=== PATIENT | female | born 1945 | race Caucasian/White ===

== ENCOUNTER → 2018-11-15 | Outpatient (CLI) | payer MEDICARE, OTHER ==
--- NOTE | 2018-11-15 10:53 | Diagnostic Imaging Report ---
PROCEDURE: US Non-ob pelvis comp/trans. TECHNIQUE: Multiple realtime grayscale images were obtained of the pelvis in various projections endovaginally. Transabdominal imaging was also performed. INDICATION: Vaginal bleeding. Uterus measures 6.1 x 4.9 x 4.1 cm. Endometrium is significantly thickened and heterogeneous in appearance measuring up to 3.7 cm. There is some vascularity to the endometrium. Right ovary measures 2.0 x 1.6 x 0.9 cm and the left ovary measures 2.0 x 1.6 x 1.0 cm. No adnexal mass or free fluid is seen. IMPRESSION: Markedly thickened and heterogeneous endometrium with some internal vascularity. Features are concerning for endometrial neoplasm. Dictated by: Dictated on workstation # [id number]
== END ==
LOC: RAD 09:30
PROVIDERS: ATTEND Nurse Practitioner Women's Health
DX: Z95.0 Presence of cardiac pacemaker (principal); R93.89 Abnormal findings on diagnostic imaging of other specified body structures
CPT/HCPCS: 76830; 76856

== ENCOUNTER 2018-12-04 05:37 | Outpatient (CLI) | payer MEDICARE, OTHER ==
[~2018-12-04] VITALS: Ht 170.2 cm; Wt 88.0 kg
[2018-12-04] MEDS ORDERED: TORS20TA3 PO (08:41)
[2018-12-04] MEDS ORDERED: AMLO5TAB9 PO (08:41)
[2018-12-04] MEDS ORDERED: POTA10TA36 PO (08:41)
[2018-12-04] MEDS ORDERED: BENA20TA7 PO (08:41)
[2018-12-04] MEDS ORDERED: ATOR80TA76 PO (08:41)
[2018-12-04] MEDS ORDERED: LEVO75TA6 PO (08:41)
== END 2018-12-04 10:41 | disposition home or self-care (01) ==
LOC: PREOP 05:37
PROVIDERS: ATTEND Obstetrics & Gynecology
DX: Z01.818 Encounter for other preprocedural examination (principal)

== ENCOUNTER 2018-12-10 07:55 | Day surgery (SDC) | payer MEDICARE, OTHER ==
[2018-12-10] VITALS (7 sets, daily range): BP systolic 120–154; BP diastolic 80–93
[~2018-12-10] VITALS: Ht 172.7 cm; Wt 88.1 kg
[~2018-12-10 07:55] MED LIST: AMLO5TAB9 PO; ATOR80TA76 PO; BENA20TA7 PO; LEVO75TA6 PO; POTA10TA36 PO; TORS20TA3 PO
[2018-12-10] MEDS ORDERED: LACTATED RINGERS 1,000 ML IV PRN (08:38)
[2018-12-10 08:46] LABS: BASOPHILS % (AUTO) 1 % (0-10); EOSINOPHILS # (AUTO) 0.1 10^3/uL (0.0-0.3); EOSINOPHILS % (AUTO) 1 % (0-10); HEMATOCRIT 41 % (35-52); HEMOGLOBIN 13.1 G/DL (11.5-16.0); LYMPHOCYTES # (AUTO) 1.2 X 10^3 (1.0-4.0); LYMPHOCYTES % (AUTO) 18 % (12-44); MEAN CORPUSCULAR HEMOGLOBIN 30 PG (25-34); MEAN CORPUSCULAR HGB CONC 32 G/DL (32-36); MEAN CORPUSCULAR VOLUME 93 FL (80-99); MEAN PLATELET VOLUME 9.1 FL (7.4-10.4); MONOCYTES # (AUTO) 0.7 X 10^3 (0.0-1.0); MONOCYTES % (AUTO) 10 % (0-12); NEUTROPHILS # (AUTO) 4.5 X 10^3 (1.8-7.8); NEUTROPHILS % (AUTO) 70 % (42-75); PLATELET COUNT 299 10^3/uL (130-400); RED CELL DISTRIBUTION WIDTH 14.1 % (10.0-14.5); WHITE BLOOD COUNT 6.5 10^3/uL (4.3-11.0)
[2018-12-10] MEDS ORDERED: D5 LR IV SOLUTION 1,000 ML IV SCH (09:34)
[2018-12-10] MEDS ORDERED: ONDANSETRON 4 MG/2 ML (SDV) Z0FRAN IVP PRN (09:45)
[2018-12-10] MEDS ORDERED: PROPOFOL INJECTION 50 ML IV ONE (10:36)
[2018-12-10] MEDS ORDERED: MIDAZOLAM 2 MG/2 ML (VERSED) VIAL ONE (10:36)
[2018-12-10] MEDS ORDERED: fentaNYL INJECTION 100 MCG/2 ML AMP ONE (10:37)
[2018-12-10] MEDS ORDERED: BUPIVACAINE 0.25% 30 ML (SENSORCAINE) VIAL ONE (10:41)
--- NOTE | 2018-12-10 10:53 | Progress Note-Pre Operative ---
Pre-Operative Progress Note H&P Reviewed The H&P was reviewed, patient examined and no changes noted. Date Seen by Provider: Dec 10, 2018 Time Seen by Provider: 10:55 Date H&P Reviewed: Dec 10, 2018 Time H&P Reviewed: 10:45 Pre-Operative Diagnosis: PMB WERNER BOJORQUEZ DO Dec 10, 2018 10:52
--- NOTE | 2018-12-10 15:37 | Anesthesia-General Post-Op ---
General Patient Condition Mental Status/LOC: Same as Preop Cardiovascular: Satisfactory Nausea/Vomiting: Absent Respiratory: Satisfactory Pain: Controlled Complications: Absent Post Op Complications Complications None Follow Up Care/Instructions Patient Instructions None needed. Anesthesia/Patient Condition Patient Condition Patient is doing well, no complaints, stable vital signs, no apparent adverse anesthesia problems. No complications reported per nursing. TA CELAYA CRNA Dec 10, 2018 15:37
--- NOTE | 2018-12-10 16:04 | OPERATIVE REPORT ---
DATE OF SERVICE: 12/10/2018 PREOPERATIVE DIAGNOSIS: A 73-year-old female with postmenopausal bleeding. POSTOPERATIVE DIAGNOSIS: A 73-year-old female with postmenopausal bleeding. PROCEDURE: D and C. SURGEON: Werner Bojorquez DO ANESTHESIA: MAC sedation. ESTIMATED BLOOD LOSS: Minimal. URINE OUTPUT: 250 mL clear drained at the end of the procedure. FLUIDS: 500 mL lactated Ringer's solution. FINDINGS: There is a small to moderate amount of endometrial curettings, age appropriate atrophic cervix, vagina and external female genitalia. SPECIMEN SENT: Endometrial curettings. INDICATIONS FOR PROCEDURE: This 73-year-old female is a patient of mine that I have been maintenancing every 6 to 8 weeks with pessary maintenance for cystocele. In the past months, she has had some postmenopausal bleeding. We removed the pessary, which did improve the bleeding; however, due to her postmenopausal status endometrial biopsy was attempted in the office was unsuccessful for collecting any tissue. Relevant pathologic analysis. I then discussed with the patient performing a D and C under anesthesia. Risks of procedure were discussed with the patient in detail including risk of bleeding, damage to surrounding structures including but not limited to bowel, bladder, ureter, kidneys, possible uterine perforation, postoperative complications and even . After everything was discussed with the patient in detail, consent was obtained in the preoperative area, the patient was taken to the operating room. OPERATIVE REPORT IN DETAIL: Once in the operating room, sedation was found to be adequate. She was placed in dorsal lithotomy position. A weighted speculum was placed into the patient's vagina. A right angle retractor was used to visualize the cervix, which was grasped at 12 o'clock position using long Allis clamp. A paracervical block was then performed at 3 and 9 o'clock positions using 0.25% Marcaine. Care was taken to aspirate before injecting. A total of 5 mL was injected at each injection site. I then gently sound the uterine cavity depth was found to be 8 cm and gently dilated the cervix using Hegar dilators to approximately 3 to 4 mm; however, due to an acute turn in her cervix I transitioned to a Edwin dilator, which allows me to dilate to approximately 8 mm, allowing me to take an endometrial sample using a small endometrial curette after which there was no active bleeding noted from any of my dissection planes. I removed all of the instruments from the patient's vagina. The patient tolerated the procedure well and sent to recovery area in stable condition. Lap and sponge counts were correct at the end of the procedure. Instrument counts correct as well. Job ID: [id number] DocumentID: [id number] Dictated Date: 12/10/2018 11:35:43 Industry Operations Investigator Date: 12/10/2018 16:03:30 Dictated By: WERNER BOJORQUEZ DO
== END 2018-12-10 12:42 | disposition home or self-care (01) ==
LOC: SDC 07:55
PROVIDERS: ATTEND Obstetrics & Gynecology
DX: N95.0 Postmenopausal bleeding (principal); R93.89 Abnormal findings on diagnostic imaging of other specified body structures; I10 Essential (primary) hypertension; E03.9 Hypothyroidism, unspecified; E78.5 Hyperlipidemia, unspecified; M19.90 Unspecified osteoarthritis, unspecified site; Z79.899 Other long term (current) drug therapy; Z82.49 Family history of ischemic heart disease and other diseases of the circulatory system; Z83.3 Family history of diabetes mellitus
CPT/HCPCS: 36415; 85025; 86850; 86900; 86901; 87081; 94664

== ENCOUNTER → 2018-12-26 | Outpatient (CLI) | payer MEDICARE, OTHER ==
[~2018-12-26] MED LIST changes: +BARIUM SUSPENSION 2.1% (VANILLA SILQ) 450 ML PO ONE; +CATHETER FLUSH 10 ML SYR IV PRN; +HOLD METFORMIN - RECEIVED CONTRAST 20 ML VIAL IV SCH; +IOHEXOL 350 MG/ML 100 ML (OMNIPAQUE 350) VIAL IV ONE; +NS 100 ML (IVPB) BAG IV ONE
--- NOTE | 2018-12-26 08:50 | Diagnostic Imaging Report ---
EXAMINATION: CT Chest, Abdomen and Pelvis with intravenous contrast. TECHNIQUE: Multiple contiguous axial images were obtained through the chest, abdomen and pelvis after the uneventful administration of intravenous contrast. All CT scans use one or more of the following dose optimizing techniques: automated exposure control, MA and/or KvP adjustment based on a patient size and exam type, or iterative reconstruction. INDICATION: Endometrial cancer. No comparison available. FINDINGS: The lungs are clear without edema or pneumonia. No pleural effusion or pneumothorax. No suspicious nodules. Heart size is normal. No pericardial effusion. Aorta is normal in caliber. There is no axillary, supraclavicular or mediastinal lymphadenopathy. There are moderate to severe coronary artery calcifications. The liver is normal without focal lesion. No biliary ductal dilation. Gallbladder is normal. Pancreas, spleen and adrenal glands are normal. The kidneys are normal. No hydronephrosis. Urinary bladder is normal. There is masslike thickening of the endometrium in keeping with diagnosis of endometrial cancer. There is a small fat-containing umbilical hernia. There are no dilated loops of large or small bowel. No obstruction or inflammation. The appendix is normal. No free fluid or air. No abdominal or pelvic lymphadenopathy. Aorta is normal in caliber without aneurysm. There are no suspicious osseus lesions. IMPRESSION: 1. Masslike thickening of the endometrium in keeping with the diagnosis of endometrial cancer. 2. No evidence for metastatic disease in the chest, abdomen and pelvis. Dictated by: Dictated on workstation # [id number]
== END ==
LOC: RAD 07:39
PROVIDERS: ATTEND Obstetrics & Gynecology
DX: C54.1 Malignant neoplasm of endometrium (principal)
CPT/HCPCS: 71260; 74177

== ENCOUNTER → 2019-01-07 | Outpatient (CLI) | payer MEDICARE, OTHER ==
[~2019-01-07] MED LIST changes: -BARIUM SUSPENSION 2.1% (VANILLA SILQ) 450 ML PO ONE; -CATHETER FLUSH 10 ML SYR IV PRN; -HOLD METFORMIN - RECEIVED CONTRAST 20 ML VIAL IV SCH; -IOHEXOL 350 MG/ML 100 ML (OMNIPAQUE 350) VIAL IV ONE; -NS 100 ML (IVPB) BAG IV ONE
[2019-01-07 11:30] LABS: BILIRUBIN,URINE NEGATIVE (NEGATIVE); CLARITY,URINE CLEAR; COLOR,URINE YELLOW; GLUCOSE, URINE (UA) NEGATIVE (NEGATIVE); KETONES,URINE NEGATIVE (NEGATIVE); LEUKOCYTE ESTERASE ,URINE NEGATIVE (NEGATIVE); NITRITE,URINE NEGATIVE (NEGATIVE); PH,URINE 7 (5-9); PROTEIN,URINE NEGATIVE (NEGATIVE); UROBILINOGEN,URINE NORMAL (NORMAL)
[2019-01-07 11:47] LABS: BASOPHILS % (AUTO) 1 % (0-10); EOSINOPHILS % (AUTO) 0 % (0-10); HEMATOCRIT 38 % (35-52); HEMOGLOBIN 12.3 G/DL (11.5-16.0); LYMPHOCYTES # (AUTO) 0.9 X 10^3 (1.0-4.0); LYMPHOCYTES % (AUTO) 12 % (12-44); MEAN CORPUSCULAR HEMOGLOBIN 30 PG (25-34); MEAN CORPUSCULAR HGB CONC 33 G/DL (32-36); MEAN CORPUSCULAR VOLUME 91 FL (80-99); MONOCYTES # (AUTO) 0.9 X 10^3 (0.0-1.0); MONOCYTES % (AUTO) 11 % (0-12); NEUTROPHILS # (AUTO) 5.9 X 10^3 (1.8-7.8); NEUTROPHILS % (AUTO) 77 % (42-75); PLATELET COUNT 371 10^3/uL (130-400); RED CELL DISTRIBUTION WIDTH 13.8 % (10.0-14.5); WHITE BLOOD COUNT 7.7 10^3/uL (4.3-11.0)
[2019-01-07 11:55] LABS: BACTERIA,URINE NEGATIVE /HPF
[2019-01-07 12:11] LABS: ALANINE AMINOTRANSFERASE 23 U/L (0-55); ALKALINE PHOSPHATASE 78 U/L (40-136); BILIRUBIN,TOTAL 0.5 MG/DL (0.1-1.0); BUN/CREATININE RATIO 15; CALCIUM 9.8 MG/DL (8.5-10.1); CARBON DIOXIDE 24 MMOL/L (21-32); CHLORIDE 103 MMOL/L (98-107); CREATININE SERUM 0.87 MG/DL (0.60-1.30); GFR ESTIMATED > 60; GLUCOSE 124 MG/DL (70-105); POTASSIUM 4.2 MMOL/L (3.6-5.0); SODIUM 138 MMOL/L (135-145); TOTAL PROTEIN 7.4 GM/DL (6.4-8.2)
== END ==
LOC: LAB 10:45
PROVIDERS: ATTEND Obstetrics & Gynecology
DX: Z01.812 Encounter for preprocedural laboratory examination (principal)
CPT/HCPCS: 36415; 80053; 81000; 85025

== ENCOUNTER 2019-02-25 08:45 | Outpatient (CLI) | payer MEDICARE, OTHER ==
[~2019-02-25] VITALS: Ht 167 cm; Wt 82.9 kg
[2019-02-25 08:58] VITALS: BP 177/102
== END 2019-02-25 09:20 ==
LOC: PREOP 08:45
PROVIDERS: ATTEND Surgery
DX: Z01.818 Encounter for other preprocedural examination (principal); Z11.2 Encounter for screening for other bacterial diseases
CPT/HCPCS: 87081

== ENCOUNTER 2019-02-27 08:27 | Day surgery (SDC) | payer MEDICARE, OTHER ==
[2019-02-27] VITALS (7 sets, daily range): BP systolic 135–184; BP diastolic 70–94
[~2019-02-27] VITALS: Ht 167 cm; Wt 82.9 kg
[2019-02-27] MEDS ORDERED: LACTATED RINGERS 1,000 ML IV PRN (08:31)
[2019-02-27] MEDS ORDERED: CLINDAMYCIN 600 MG/50 ML IVPB 50 ML IV ONE (08:45)
--- NOTE | 2019-02-27 10:03 | Progress Note-Pre Operative ---
Pre-Operative Progress Note H&P Reviewed The H&P was reviewed, patient examined and no changes noted. Time Seen by Provider: 09:59 Date H&P Reviewed: Feb 27, 2019 Time H&P Reviewed: 10:01 Pre-Operative Diagnosis: Venous Insufficiency SHANTELLE ALVARADO DO Feb 27, 2019 10:03 POS
[2019-02-27] MEDS ORDERED: BUP/EPI 0.5% 1:200,000 (MARCAINE) 10ML VIAL IJ ONE ×2 (10:39→11:40)
[2019-02-27] MEDS ORDERED: 0.9% SODIUM CHLORIDE PF INJ 20 ML VIAL ONE (10:40)
[2019-02-27] MEDS ORDERED: HEParin (CENTRAL IV FLUSH) 500 UNIT/5 ML SYR ONE (10:40)
[2019-02-27] MEDS ORDERED: PROPOFOL INJECTION 50 ML IV ONE (10:51)
[2019-02-27] MEDS ORDERED: KETAMINE/NaCl 50 MG/5 ML SYRINGE (ED ONLY) ONE (11:25)
[2019-02-27] MEDS ORDERED: MIDAZOLAM 2 MG/2 ML (VERSED) VIAL ONE (11:26)
[2019-02-27] MEDS ORDERED: morphine INJ 10 MG/ML 1ML (SYR OR VIAL) IVP ONE (12:30)
[2019-02-27] MEDS ORDERED: ONDANSETRON 4 MG/2 ML (SDV) Z0FRAN IVP PRN (12:30)
--- NOTE | 2019-02-27 13:30 | Diagnostic Imaging Report ---
INDICATION: Undergoing port placement. TECHNIQUE: Single intraprocedural images right upper chest. FINDINGS/ IMPRESSION: The hospital radiology department provided fluoroscopic imaging for the clinical service in support of an interventional procedure. A radiologist was not involved in the procedure. Please reference the operating provider's procedure note. Fluoroscopy Time: 7.8 seconds. Limited single view projection of the right upper chest demonstrates a right sided Tnnzfr-s-Lqwz catheter to be present. There is noted fairly significant curvature of the proximal aspect of the catheter which has nearly 180-degree course. Tip is not well-defined on this study. If further assessment is desired, post procedure chest radiograph would be recommended. Dictated by: Dictated on workstation # [id number]
--- NOTE | 2019-02-27 14:03 | NUR ---
PHONED TELEPHONE AND RECEIVED TELEPHONE CONSENT TO PUT DISCHARGE IN FOR PATIENT CONTINUE HOME MEDICATIONS AND F/U IN 10 DAYS.
--- NOTE | 2019-02-27 14:59 | Progress Note-Post Operative ---
Post-Operative Progess Note Surgeon (s)/Aquaculture Farm Manager (s) Surgeon SHANTELLE ALVARADO DO Aquaculture Farm Manager: JUICE Mederos Pre-Operative Diagnosis Venous Insufficiency Post-Operative Diagnosis same Procedure & Operative Findings Date of Procedure 02/27/19 Procedure Performed/Findings Osvaldo-cath insertion Anesthesia Type IV sedation by OIL AND GAS EXPLORATION TECHNICIAN Estimated Blood Loss Estimated blood loss (mL): scant Specimens/Packing Specimens Removed none SHANTELLE ALVARADO DO Feb 27, 2019 14:58 POS
--- NOTE | 2019-02-27 15:00 | Discharge Inst-Surgical ---
Discharge Inst-Surgical Depart Medication/Instructions New, Converted or Re-Newed RX: Other (no rx needed, take home meds) Patient Instructions Follow up Appt: Make appointment for 1 week. [phone] Instructions: May shower in 24 hours, no tub bath or soaking. Use incentive spirometer at home as directed. No Smoking Skin/Wound Care: May remove bandages in am. You need to leave the Dermabond on incision it will fall off on it's own. Symptoms to Report: Appetite Changes, Extremity Discoloration, Numbness/Tingling, Swelling Increased, Bleeding Excessive, Eyesight Changes, Pain Increased, Urine Color Change, Constipation(Persistent), Fever over 101 degree F, Pain/Pressure in chest, Urinating Difficulty, Cough Up/Vomit Blood, Heart Beat Irreg/Pounding, Pain/Pressure in jaw, Cramps in feet or legs, Lightheadedness, Pain/Pressure in shoulder, Diarrhea(Persistent), Memory Changes Suddenly, Questions/Concerns, Weight gain consecutive days, Dizziness/Fainting, Nausea/Vomiting, Shortness of Breath, Weight gain over 2 pounds If questions or concerns contact your physician Or seek help at emergency department. Activity Activity as Tolerated: Yes Driving Instructions: No Driving/Refer to Dr. Parker Discharge Diet: No Restrictions Diet After 24 Hours: Clear Liquid if Nauseous If Any Problems/Questions/Issu: Contact Your Physician, Go to Emergency Room Skin/Wound Care Infection Signs and Symptoms: Increased Redness, Foul Odor of Wound, Increased Drainage, Skin Itchy or Has a Rash, Increased Swelling, Temperature Above 101 F Bathing Instructions: Shower Stitches/Wilfredo/Dermabond Dis: SHANTELLE Sharif DO Feb 27, 2019 14:59 POS
--- NOTE | 2019-02-27 15:09 | Anesthesia-General Post-Op ---
MAC Patient Condition Mental Status/LOC: Same as Preop Cardiovascular: Satisfactory Nausea/Vomiting: Absent Respiratory: Satisfactory Pain: Controlled Complications: Absent Post Op Complications Complications None Follow Up Care/Instructions Patient Instructions None needed. Anesthesiology Discharge Order Discharge Order Patient is doing well, no complaints, stable vital signs, no apparent adverse anesthesia problems. EDSON CHIN DO Feb 27, 2019 15:09 POS
--- NOTE | 2019-02-28 13:50 | OPERATIVE REPORT ---
DATE OF SERVICE: 02/27/2019 PREOPERATIVE DIAGNOSIS: Venous insufficiency. POSTOPERATIVE DIAGNOSIS: Venous insufficiency. PROCEDURE: Insertion of Port-A-Cath, right anterior chest wall, right subclavian vein with fluoroscopy guidance. SURGEON: Bhupendra Guthrie DO DIRECTOR DAY CARE CENTER: Gregory Saxena MS3 SPECIMENS: None. BLOOD LOSS: Scant. FLUIDS: Per anesthesia. POSTOPERATIVE CONDITION: Stable. INDICATION FOR PROCEDURE: The patient is a 74-year-old female who has venous insufficiency and has cancer with need for Port-A-Cath for chemotherapy. FINDINGS: The patient had a Port-A-Cath placed in right anterior chest wall, right subclavian vein. PROCEDURE NOTE: After informed consent was obtained, the patient was brought to the operating room, placed on the operating table in supine position. She was sterilely prepped and draped in normal fashion, placed slightly Trendelenburg. First infiltrated the right anterior chest wall as well as towards the clavicle with local lidocaine, then I advanced an 18-gauge fine needle with negative inspiration under the clavicle, got a good flash of blood on the first attempt removed the syringe then placed a guidewire using Seldinger technique. It went in easily checked with fluoroscopy, it was in good position, then made a stab incision along the guidewire with a #11 blade and then made an incision in the right anterior chest wall with #11 blade, carried down through the skin into subcutaneous tissue, deepened down through subcutaneous tissue with Bovie electrocautery down to the fascia of the pectoralis muscle and then created a pocket bluntly, tunneled the catheter from the stab incision into this pocket and then over the guidewire placed a dilator using the Seldinger technique, it went in easily checked with fluoroscopy, it was in good position. I removed the inner portion of the dilator and the guidewire and then placed the catheter down the dilator sheath using Seldinger technique, it went in easily checked position with fluoroscopy, it was in good position. I removed the outer portion of the dilator and then attached the catheter to the port placed a locking mechanism accessed the port with a Meyers needle, aspirated, got a good flash of blood then easily flushed with saline and then aspirated and then flushed with 2 mL of heparin flush. Sutured this in place suturing the 3-0 Prolene to the port and suturing this down medially to the pectoralis fascia. Placed the port in the pocket previously created. It laid in nicely. At this point, then closed the subcutaneous tissue with 3-0 Vicryl 2 interrupted sutures and closed the skin with 4 undyed Monocryl, 3 interrupted subcuticular stitches and closed the stab incision with a 4-0 undyed Monocryl subcuticular stitch. Area was cleaned and dried. Dermabond placed as well as dressing. The patient tolerated the procedure. Sponge, instrument and needle count correct at the end of the case and transferred to recovery room in stable condition. Job ID: [id number] DocumentID: [id number] Dictated Date: 02/28/2019 09:26:02 Structures Technician Date: 02/28/2019 13:48:52 Dictated By: DO FLORIN BERMUDEZ
--- OUTSIDE RECORDS SUMMARY | 2019-03-24 21:07 | XMS REPORT | Continuity of Care Document ---
Author Organization Unknown Address Unknown Phone Unavailable Allergies Active Description Code Type Severity Reaction Onset Reported/Identified Relationship to Patient Clinical Status Yes NO KNOWN DRUG ALLERGIES UNKNOWN NO KNOWN DRUG ALLERG Yes NO KNOWN DRUG ALLERGIES UNKNOWN UNKNOWN Yes No Known Drug Allergies [id number] Drug Allergy Unknown N/A 12/04/2018 Yes Penicillins [id number] Drug Aller gy Mild RASH 02/25/2019 Medications There is no data. 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 04/24/2017 W 401.9 UNSP ECIFIED ESSENTIAL HYPERTENSION 04/24/2017 W 460 ACUTE NASOPHARYNGITIS [COMMON COLD] 04/24/2017 W 625.5 PELV IC CONGESTION SYNDROME 04/24/2017 W E03.9 HYPO THYROIDISM, UNSPECIFIED 04/24/2017 W E78.5 HYPE RLIPIDEMIA, UNSPECIFIED 04/24/2017 W I10 ESSENT IAL (PRIMARY) HYPERTENSION 04/24/2017 W J00 ACUTE NASOPHARYNGITIS [COMMON COLD] 04/24/2017 W N94.89 OTH ER SPECIFIED CONDITIONS ASSOCIATED WITH FEMALE GENITAL ORGANS AND MENSTRUAL CYCLE 10/10/2017 Ariadna Pickard W 244.9 UNSPECIFIED HYPOTHYROIDISM 10/10/2017 Melly, Ariadna W 272.8 OTHER DISORDERS OF LIPOID METABOLISM 10/10/2017 Melly, Ariadna W 401.9 UNSPECIFIED ESSENTIAL HYPERTENSION 10/10/2017 Melly, Ariadna W E03.9 HYPOTHYROIDISM, UNSPECIFIED 10/10/2017 Melly, Ariadna W E78.5 HYPERLIPIDEMIA, UNSPECIFIED 10/10/2017 Melly, Ariadna W I10 ESSENTIAL (PRIMARY) HYPERTENSION 10/16/2017 W 244.9 UNSP ECIFIED HYPOTHYROIDISM 10/16/2017 W 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 10/16/2017 W 278.00 OBE SITY, UNSPECIFIED 10/16/2017 W 401.9 UNSP ECIFIED ESSENTIAL HYPERTENSION 10/16/2017 W 715.16 OST EOARTHROSIS, LOCALIZED, PRIMARY, INVOLVING LOWER LEG 10/16/2017 W 719.46 MATTHIAS N IN JOINT INVOLVING LOWER LEG 10/16/2017 W E03.9 HYPO THYROIDISM, UNSPECIFIED 10/16/2017 W E66.9 OBES ITY, UNSPECIFIED 10/16/2017 W E78.5 HYPE RLIPIDEMIA, UNSPECIFIED 10/16/2017 W I10 ESSENT IAL (PRIMARY) HYPERTENSION 10/16/2017 W M17.0 BILA TERAL PRIMARY OSTEOARTHRITIS OF KNEE 10/16/2017 W M25.561 PA IN IN RIGHT KNEE 10/30/2017 W 715.16 OST EOARTHROSIS, LOCALIZED, PRIMARY, INVOLVING LOWER LEG 10/30/2017 W 719.46 MATTHIAS N IN JOINT INVOLVING LOWER LEG 10/30/2017 W M17.12 UNI LATERAL PRIMARY OSTEOARTHRITIS, LEFT KNEE 10/30/2017 W M25.562 PA IN IN LEFT KNEE 01/15/2018 W 715.16 OST EOARTHROSIS, LOCALIZED, PRIMARY, INVOLVING LOWER LEG 01/15/2018 W 719.46 MATTHIAS N IN JOINT INVOLVING LOWER LEG 01/15/2018 W M17.11 UNI LATERAL PRIMARY OSTEOARTHRITIS, RIGHT KNEE 01/15/2018 W M25.561 PA IN IN RIGHT KNEE 02/05/2018 W 244.9 UNSP ECIFIED HYPOTHYROIDISM 02/05/2018 W 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 02/05/2018 W 278.00 OBE SITY, UNSPECIFIED 02/05/2018 W 401.9 UNSP ECIFIED ESSENTIAL HYPERTENSION 02/05/2018 W 715.16 OST EOARTHROSIS, LOCALIZED, PRIMARY, INVOLVING LOWER LEG 02/05/2018 W 719.46 MATTHIAS N IN JOINT INVOLVING LOWER LEG 02/05/2018 W 782.3 EDEMA 02/05/2018 W E03.9 HYPO THYROIDISM, UNSPECIFIED 02/05/2018 W E66.9 OBES ITY, UNSPECIFIED 02/05/2018 W E78.5 HYPE RLIPIDEMIA, UNSPECIFIED 02/05/2018 W I10 ESSENT IAL (PRIMARY) HYPERTENSION 02/05/2018 W M17.12 UNI LATERAL PRIMARY OSTEOARTHRITIS, LEFT KNEE 02/05/2018 W M25.562 PA IN IN LEFT KNEE 02/05/2018 W R60.9 ANJANA A, UNSPECIFIED 02/27/2018 Melly, Ariadna W 244.9 UNSPECIFIED HYPOTHYROIDISM 02/27/2018 Melly, Ariadna W 272.8 OTHER DISORDERS OF LIPOID METABOLISM 02/27/2018 Melly, Ariadna W 278.00 OBESITY, UNSPECIFIED 02/27/2018 Melly, Ariadna W 401.9 UNSPECIFIED ESSENTIAL HYPERTENSION 02/27/2018 Melly, Ariadna W 782.3 EDEMA 02/27/2018 Melly, Ariadna W E03.9 HYPOTHYROIDISM, UNSPECIFIED 02/27/2018 Melly, Ariadna W E66.9 OBESITY, UNSPECIFIED 02/27/2018 Melly, Ariadna W E78.5 HYPERLIPIDEMIA, UNSPECIFIED 02/27/2018 Melly, Ariadna W I10 ESSENTIAL (PRIMARY) HYPERTENSION 02/27/2018 Melly, Ariadna W R60.9 EDEMA, UNSPECIFIED 03/05/2018 W 244.9 UNSP ECIFIED HYPOTHYROIDISM 03/05/2018 W 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 03/05/2018 W 401.9 UNSP ECIFIED ESSENTIAL HYPERTENSION 03/05/2018 W 715.30 OST EOARTHROSIS, LOCALIZED, NOT SPECIFIED WHETHER PRIMARY OR SECONDARY, INVOLVING UNSPECIFIED SITE 03/05/2018 W 782.3 EDEMA 03/05/2018 W E03.9 HYPO THYROIDISM, UNSPECIFIED 03/05/2018 W E78.5 HYPE RLIPIDEMIA, UNSPECIFIED 03/05/2018 W I10 ESSENT IAL (PRIMARY) HYPERTENSION 03/05/2018 W M19.90 UNS PECIFIED OSTEOARTHRITIS, UNSPECIFIED SITE 03/05/2018 W R60.9 ANJANA A, UNSPECIFIED 03/05/2018 W V76.19 OTH ER SCREENING BREAST EXAMINATION 03/05/2018 W Z12.39 ENC OUNTER FOR OTHER SCREENING FOR MALIGNANT NEOPLASM OF BREAST 03/08/2018 Ariadna Pickard W V76.19 OTHER SCREENING BREAST EXAMINATION 03/08/2018 Ariadna Pickard W Z12.39 ENCOUNTER FOR OTHER SCREENING FOR MALIGNANT NEOPLASM OF BREAST 06/04/2018 W 715.16 OST EOARTHROSIS, LOCALIZED, PRIMARY, INVOLVING LOWER LEG 06/04/2018 W 719.46 MATTHIAS N IN JOINT INVOLVING LOWER LEG 06/04/2018 W M17.11 UNI LATERAL PRIMARY OSTEOARTHRITIS, RIGHT KNEE 06/04/2018 W M25.561 PA IN IN RIGHT KNEE 06/18/2018 W 715.16 OST EOARTHROSIS, LOCALIZED, PRIMARY, INVOLVING LOWER LEG 06/18/2018 W 719.46 MATTHIAS N IN JOINT INVOLVING LOWER LEG 06/18/2018 W M17.12 UNI LATERAL PRIMARY OSTEOARTHRITIS, LEFT KNEE 06/18/2018 W M25.562 PA IN IN LEFT KNEE 09/03/2018 W 244.9 UNSP ECIFIED HYPOTHYROIDISM 09/03/2018 W 272.4 OTHE R AND UNSPECIFIED HYPERLIPIDEMIA 09/03/2018 W 278.00 OBE SITY, UNSPECIFIED 09/03/2018 W 401.0 HANG GNANT ESSENTIAL HYPERTENSION 09/03/2018 W 715.16 OST EOARTHROSIS, LOCALIZED, PRIMARY, INVOLVING LOWER LEG 09/03/2018 W 719.46 MATTHIAS N IN JOINT INVOLVING LOWER LEG 09/03/2018 W E03.9 HYPO THYROIDISM, UNSPECIFIED 09/03/2018 W E66.9 OBES ITY, UNSPECIFIED 09/03/2018 W E78.5 HYPE RLIPIDEMIA, UNSPECIFIED 09/03/2018 W I10 ESSENT IAL (PRIMARY) HYPERTENSION 09/03/2018 W M17.11 UNI LATERAL PRIMARY OSTEOARTHRITIS, RIGHT KNEE 09/03/2018 W M25.561 PA IN IN RIGHT KNEE 09/17/2018 W 715.16 OST EOARTHROSIS, LOCALIZED, PRIMARY, INVOLVING LOWER LEG 09/17/2018 W 719.46 MATTHIAS N IN JOINT INVOLVING LOWER LEG 09/17/2018 W M17.12 UNI LATERAL PRIMARY OSTEOARTHRITIS, LEFT KNEE 09/17/2018 W M25.562 PA IN IN LEFT KNEE 11/19/2018 BANDAR FIGUEROA NUCLEAR INSTRUCTOR Ot R93.89 ABNORMAL FINDINGS ON DX IMAGING OF [facility] 11/19/2018 BANDAR FIGUEROA NUCLEAR INSTRUCTOR Ot Z95.0 PRESENCE OF CARDIAC PACEMAKER 11/28/2018 Melly, Ariadna W 244.9 UNSPECIFIED HYPOTHYROIDISM 11/28/2018 Melly, Ariadna W 272.4 OTHER AND UNSPECIFIED HYPERLIPIDEMIA 11/28/2018 Melly, Ariadna W 278.00 OBESITY, UNSPECIFIED 11/28/2018 Melly, Ariadna W 401.0 MALIGNANT ESSENTIAL HYPERTENSION 11/28/2018 Melly, Ariadna W 715.16 OSTEOARTHROSIS, LOCALIZED, PRIMARY, INVOLVING LOWER LEG 11/28/2018 Melly, Ariadna W 782.3 EDEMA 11/28/2018 Melly, Ariadna W E03.9 HYPOTHYROIDISM, UNSPECIFIED 11/28/2018 Melly, Ariadna W E66.9 OBESITY, UNSPECIFIED 11/28/2018 Melly, Ariadna W E78.5 HYPERLIPIDEMIA, UNSPECIFIED 11/28/2018 Melly, Ariadna W I10 ESSENTIAL (PRIMARY) HYPERTENSION 11/28/2018 Melly, Ariadna W M17.0 BILATERAL PRIMARY OSTEOARTHRITIS OF KNEE 11/28/2018 Melly, Ariadna W R60.9 EDEMA, UNSPECIFIED 11/28/2018 Melly, Ariadna W V68.09 OTHER ISSUE OF MEDICAL CERTIFICATES 11/28/2018 Melly, Ariadna W V72.84 PREOPERATIVE EXAMINATION, UNSPECIFIED 11/28/2018 Melly, Ariadna W Z01.812 ENCOUNTER FOR PREPROCEDURAL LABORATORY EXAMINATION 11/28/2018 Melly, Ariadna W Z02.79 ENCOUNTER FOR ISSUE OF OTHER MEDICAL CERTIFICATE 11/29/2018 BANDAR FIGUEROA NUCLEAR INSTRUCTOR Ot R93.89 ABNORMAL FINDINGS ON DX IMAGING OF OT B 11/29/2018 BANDAR FIGUEROA NUCLEAR INSTRUCTOR Ot Z95.0 PRESENCE OF CARDIAC PACEMAKER 11/29/2018 BANDAR FIGUEROA NUCLEAR INSTRUCTOR Ot R93.89 ABNORMAL FINDINGS ON DX IMAGING OF OT B 11/29/2018 BANDAR FIGUEROA NUCLEAR INSTRUCTOR Ot Z95.0 PRESENCE OF CARDIAC PACEMAKER 11/29/2018 BANDAR FIGUEROA NUCLEAR INSTRUCTOR Ot R93.89 ABNORMAL FINDINGS ON DX IMAGING OF OTH B 11/29/2018 BANDAR FIGUEROA NUCLEAR INSTRUCTOR Ot Z95.0 PRESENCE OF CARDIAC PACEMAKER 11/30/2018 BANDAR FIGUEROA NUCLEAR INSTRUCTOR Ot R93.89 ABNORMAL FINDINGS ON DX IMAGING OF OT B 11/30/2018 BANDAR FIGUEROA NUCLEAR INSTRUCTOR Ot Z95.0 PRESENCE OF CARDIAC PACEMAKER 11/30/2018 Ariadna Pickard V68.09 OTHER ISSUE OF MEDICAL CERTIFICATES 11/30/2018 Ariadna Pickard V72.84 PREOPERATIVE EXAMINATION, UNSPECIFIED 11/30/2018 Ariadna Pickard Z01.812 ENCOUNTER FOR PREPROCEDURAL LABORATORY EXAMINATION 11/30/2018 Ariadna Pickard Z02.79 ENCOUNTER FOR ISSUE OF OTHER MEDICAL CERTIFICATE 11/30/2018 Ariadna Pickard V68.09 OTHER ISSUE OF MEDICAL CERTIFICATES 11/30/2018 Ariadna Pickard V72.84 PREOPERATIVE EXAMINATION, UNSPECIFIED 11/30/2018 Ariadna Pickard Z01.812 ENCOUNTER FOR PREPROCEDURAL LABORATORY EXAMINATION 11/30/2018 Ariadna Pickard Z02.79 ENCOUNTER FOR ISSUE OF OTHER MEDICAL CERTIFICATE 12/04/2018 WERNER BOJORQUEZ DO S Ot Z01.818 ENCOUNTER FOR OTHER PREPROCEDURAL EXAMIN 12/10/2018 BANDAR FIGUEROA APRN Ot R93.89 ABNORMAL FINDINGS ON DX IMAGING OF OT B 12/10/2018 BANDAR FIGUEROA NUCLEAR INSTRUCTOR Ot Z95.0 PRESENCE OF CARDIAC PACEMAKER 12/10/2018 TIMIECH DO WERNER S Ot E03.9 HYPOTHYROIDISM, UNSPECIFIED 12/10/2018 FENECH DOWERNER S Ot E78.5 HYPERLIPIDEMIA, UNSPECIFIED 12/10/2018 FENECH DOWERNER S Ot I1 0 ESSENTIAL (PRIMARY) HYPERTENSION 12/10/2018 TIMIECH WERNER HERNANDEZ S Ot M19.90 UNSPECIFIED OSTEOARTHRITIS, UNSPECIFIED 12/10/2018 TIMIECH WERNER HERNANDEZ S Ot N95.0 POSTMENOPAUSAL BLEEDING 12/10/2018 WERNER BOJORQUEZ DO S Ot R93.89 ABNORMAL FINDINGS ON DX IMAGING OF OT B 12/10/2018 FENECH DO WERNER S Ot Z79.899 OTHER SCREENER AND BLENDER OPERATOR (CURRENT) DRUG THERAPY 12/10/2018 TIMIECH WERNER HERNANDEZ S Ot Z82.49 FAMILY HX OF ISCHEM HEART DIS AND OTH DI 12/10/2018 TIMIECH WERNER HERNANDEZ S Ot Z83.3 FAMILY HISTORY OF DIABETES MELLITUS 12/13/2018 TIMIECH DO WERNER S Ot E03.9 HYPOTHYROIDISM, UNSPECIFIED 12/13/2018 FENECH DOWERNER S Ot E78.5 HYPERLIPIDEMIA, UNSPECIFIED 12/13/2018 WERNER BOJORQUEZ DO S Ot I1 0 ESSENTIAL (PRIMARY) HYPERTENSION 12/13/2018 WERNER BOJORQUEZ DO Ot M19.90 UNSPECIFIED OSTEOARTHRITIS, UNSPECIFIED 12/13/2018 WERNER BOJORQUEZ DO Ot N95.0 POSTMENOPAUSAL BLEEDING 12/13/2018 WERNER BOJORQUEZ DO Ot R93.89 ABNORMAL FINDINGS ON DX IMAGING OF OT B 12/13/2018 WERNER BOJORQUEZ DO Ot Z79.899 OTHER RESIDENTIAL (CURRENT) DRUG THERAPY 12/13/2018 WERNER BOJORQUEZ DO Ot Z82.49 FAMILY HX OF ISCHEM HEART DIS AND OTH DI 12/13/2018 WERNER BOJORQUEZ DO Ot Z83.3 FAMILY HISTORY OF DIABETES MELLITUS 12/24/2018 BANDAR FIGUEROA APRN Ot R93.89 ABNORMAL FINDINGS ON DX IMAGING OF [facility] 12/24/2018 BANDAR FIGUEROA NUCLEAR INSTRUCTOR Ot Z95.0 PRESENCE OF CARDIAC PACEMAKER 12/28/2018 BRANDON MAYNARD DO Ot C54.1 MALIGNANT NEOPLASM OF ENDOMETRIUM 01/07/2019 BANDAR FIGUEROA APRN Ot R93.89 ABNORMAL FINDINGS ON DX IMAGING OF [facility] 01/07/2019 BANDAR FIGUEROA NUCLEAR INSTRUCTOR Ot Z95.0 PRESENCE OF CARDIAC PACEMAKER 01/07/2019 BRANODN MAYNARD DO S Ot C54.1 MALIGNANT NEOPLASM OF ENDOMETRIUM 01/17/2019 BRANDON MAYNARD DO S Ot C54.1 MALIGNANT NEOPLASM OF ENDOMETRIUM 01/21/2019 BRANDON MAYNARD DO S Ot C54.1 MALIGNANT NEOPLASM OF ENDOMETRIUM 01/29/2019 BRANDON MAYNARD DO S Ot Z01.812 ENCOUNTER FOR PREPROCEDURAL LABORATORY E 02/08/2019 BRANDON MAYNARD DO S Ot Z01.812 ENCOUNTER FOR PREPROCEDURAL LABORATORY E 02/26/2019 SHANTELLE ALVARADO DO Ot Z01.8 18 ENCOUNTER FOR OTHER PREPROCEDURAL EXAMIN 02/26/2019 SHANTELLE ALVARADO DO Ot Z11.2 ENCOUNTER FOR SCREENING FOR OTHER BACTER 03/01/2019 SHANTELLE ALVARADO DO Ot 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 03/01/2019 SHANTELLE ALVARADO DO Ot C80.1 MALIGNANT (PRIMARY) NEOPLASM, UNSPECIFIE 03/01/2019 SHANTELLE ALVARADO DO Ot E03.9 HYPOTHYROIDISM, UNSPECIFIED 03/01/2019 SHANTELLE ALVARADO DO Ot E78.5 HYPERLIPIDEMIA, UNSPECIFIED 03/01/2019 QUANG ALVARADO DOROHITH Toribio Ot I10 ESSENTIAL (PRIMARY) HYPERTENSION 03/01/2019 QUANG ALVARADO DOROHITH Toribio Ot I87.2 VENOUS INSUFFICIENCY (CHRONIC) (PERIPHER 03/01/2019 QUANG ALVARADO DOROHITH Toribio Ot Z79.8 99 OTHER SCREENER AND BLENDER OPERATOR (CURRENT) DRUG THERAPY 03/01/2019 QUANG ALVARADO DOROHITH Toribio Ot Z80.9 FAMILY HISTORY OF MALIGNANT NEOPLASM, UN 03/01/2019 CHRISTIANO HERNANDEZ SHANTELLE B Ot Z82.4 9 FAMILY HX OF ISCHEM HEART DIS AND OTH DI 03/01/2019 CHRISTIANO HERNANDEZ SHANTELLE B Ot Z83.3 FAMILY HISTORY OF DIABETES MELLITUS 03/01/2019 CHRISTIANO HERNANDEZ SHANTELLE B Ot Z88.0 ALLERGY STATUS TO PENICILLIN 03/01/2019 CHRISTIANO HERNANDEZ SHANTELLE B Ot Z90.7 10 ACQUIRED ABSENCE OF BOTH CERVIX AND UTER Procedures There is no data. Results Test Result Range Thyroid Stimulating Hormone - 03/01/16 0 6:21 TSH 2.06 mIU/mL 0.32-5.00 Thyroid Stimulating Hormone - 09/13/16 0 6:11 TSH 3.00 mIU/mL 0.32-5.00 Thyroid Stimulating Hormone - 03/02/17 0 6:21 TSH 2.95 mIU/mL 0.32-5.00 Lipid Panel - 10/10/17 06:15 C/HDL 3.5 3.7-6.7 Cholesterol 173 mg/dL 100-240 HDL 49 mg/dL 30-85 LDL-Calculated 93 mg/dL 0-100 Trig 153 mg/dL 35-160 VLDL 31 mg/dL 0-42 Thyroid Stimulating Hormone - 02/27/18 0 6:13 TSH 2.51 mIU/mL 0.32-5.00 Free T3 - 09/12/18 06:36 Free T3 2.71 pg/ml 1.45-3.48 EKG - 11/30/18 06:31 EKG Complete Complete blood count (CBC) with automate d white blood cell (WBC) differential - 12/10/18 08:30 Blood leukocytes automated count (number/volume) 6.5 10*3/uL 4.3-11.0 Blood erythrocytes automated count (number/volume) 4.40 10*6/uL 4.35-5.85 Venous blood hemoglobin measurement (mass/volume) 13.1 g/dL 11.5-16.0 Blood hematocrit (volume fraction) 41 % 35-52 Automated erythrocyte mean corpuscular volume 93 [ foz_us] 80-99 Automated erythrocyte mean corpuscular h emoglobin (mass per erythrocyte) 30 pg 25-34 Automated erythrocyte mean corpuscular h emoglobin concentration measurement (mass/volume) 32 g/dL 32-36 Automated erythrocyte distribution width ratio 14. 1 % 10.0- 14.5 Automated blood platelet count (count/volume) 299 10*3/uL 130-400 Automated blood platelet mean volume measurement 9.1 [foz_us] 7.4-10.4 Automated blood neutrophils/100 leukocytes 70 % 42-75 Automated blood lymphocytes/100 leukocytes 18 % 12-44 Blood monocytes/100 leukocytes 10 % 0-12 Automated blood eosinophils/100 leukocytes 1 % 0-10 Automated blood basophils/100 leukocytes 1 % 0-10 Blood neutrophils automated count (number/volume) 4.5 10*3 1.8-7.8 Blood lymphocytes automated count (number/volume) 1.2 10*3 1.0-4.0 Blood monocytes automated count (number/volume) 0. 7 10*3 0.0-1.0 Automated eosinophil count 0.1 10*3/uL 0 .0-0.3 Automated blood basophil count (count/volume) 0.0 10*3/uL 0.0-0.1 Blood type T Indirect antibody screen pa marc - 12/10/18 08:30 WRISTBAND NUMBER [id number] NRG ABO+Rh group OP NRG Blood group antibody screen NEGATIVE NR G Methicillin resistant Staphylococcus aur eus (MRSA) screening culture - 12/10/18 08:30 Methicillin resistant Staphylococcus aureus (MRSA) scr eening culture NEG NRG Complete urinalysis with reflex to cultu re - 01/07/19 11:15 Urine color determination YELLOW NRG Urine clarity determination CLEAR NR G Urine pH measurement by test strip 7 5-9 Specific gravity of urine by test strip 1.010 1.016-1.022 Urine protein assay by test strip, semi-quantitative NEGATIVE NEGATIVE Urine glucose detection by automated test strip NE GATIVE NEGATIVE Erythrocytes detection in urine sediment by light micr oscopy NEGATIVE NEGATIVE Urine ketones detection by automated test strip NE GATIVE NEGATIVE Urine nitrite detection by test strip NEGATIVE NEGATIVE Urine total bilirubin detection by test strip NEGA TIVE NEGATIVE Urine urobilinogen measurement by automated test strip (mass/volume) NORMAL NORMAL Urine leukocyte esterase detection by dipstick NEG ATIVE NEGATIVE Automated urine sediment erythrocyte cou nt by microscopy (number/high power field) NONE NRG Automated urine sediment leukocyte count by microscopy (number/high power field) NONE NRG Bacteria detection in urine sediment by light microsco py NEGATIVE NRG Crystals detection in urine sediment by light microsco py NONE NRG Casts detection in urine sediment by light microscopy PRESENT NRG Mucus detection in urine sediment by light microscopy NEGATIVE NRG Complete urinalysis with reflex to culture NO NRG Hyaline casts detection in urine sediment by light westley roscopy 5-10 NRG Complete blood count (CBC) with automate d white blood cell (WBC) differential - 01/07/19 11:40 Blood leukocytes automated count (number/volume) 7.7 10*3/uL 4.3-11.0 Blood erythrocytes automated count (number/volume) 4.12 10*6/uL 4.35-5.85 Venous blood hemoglobin measurement (mass/volume) 12.3 g/dL 11.5-16.0 Blood hematocrit (volume fraction) 38 % 35-52 Automated erythrocyte mean corpuscular volume 91 [ foz_us] 80-99 Automated erythrocyte mean corpuscular h emoglobin (mass per erythrocyte) 30 pg 25-34 Automated erythrocyte mean corpuscular h emoglobin concentration measurement (mass/volume) 33 g/dL 32-36 Automated erythrocyte distribution width ratio 13. 8 % 10.0- 14.5 Automated blood platelet count (count/volume) 371 10*3/uL 130-400 Automated blood platelet mean volume measurement 9.0 [foz_us] 7.4-10.4 Automated blood neutrophils/100 leukocytes 77 % 42-75 Automated blood lymphocytes/100 leukocytes 12 % 12-44 Blood monocytes/100 leukocytes 11 % 0-12 Automated blood eosinophils/100 leukocytes 0 % 0-10 Automated blood basophils/100 leukocytes 1 % 0-10 Blood neutrophils automated count (number/volume) 5.9 10*3 1.8-7.8 Blood lymphocytes automated count (number/volume) 0.9 10*3 1.0-4.0 Blood monocytes automated count (number/volume) 0. 9 10*3 0.0-1.0 Automated eosinophil count 0.0 10*3/uL 0 .0-0.3 Automated blood basophil count (count/volume) 0.0 10*3/uL 0.0-0.1 Comprehensive metabolic panel - 01/07/19 11:40 Serum or plasma sodium measurement (moles/volume) 138 mmol/L 135-145 Serum or plasma potassium measurement (moles/volume) 4.2 mmol/L 3.6-5.0 Serum or plasma chloride measurement (moles/volume) 103 mmol/L 98-107 Carbon dioxide 24 mmol/L 21-32 Serum or plasma anion gap determination (moles/volume) 11 mmol/L 5-14 Serum or plasma urea nitrogen measurement (mass/volume ) 13 mg/dL 7-18 Serum or plasma creatinine measurement (mass/volume) 0.87 mg/dL 0.60-1.30 Serum or plasma urea nitrogen/creatinine mass ratio 15 NRG Serum or plasma creatinine measurement w ith calculation of estimated glomerular filtration rate > NRG Serum or plasma glucose measurement (mass/volume) 124 mg/dL 70-105 Serum or plasma calcium measurement (mass/volume) 9.8 mg/dL 8.5-10.1 Serum or plasma total bilirubin measurement (mass/volu me) 0.5 mg/dL 0.1-1.0 Serum or plasma alkaline phosphatase aleksandar surement (enzymatic activity/volume) 78 U/L 40-136 Serum or plasma aspartate aminotransfera se measurement (enzymatic activity/volume) 21 U/L 5-34 Serum or plasma alanine aminotransferase measurement (enzymatic activity/volume) 23 U/L 0-55 Serum or plasma protein measurement (mass/volume) 7.4 g/dL 6.4-8.2 Serum or plasma albumin measurement (mass/volume) 4.0 g/dL 3.2-4.5 CALCIUM CORRECTED 9.8 mg/dL 8.5-10.1 CBC with Auto Diff - 03/11/19 09:15 Baso% 0.40 % 0.00-2.50 Eos 0.1 K/uL 0.0-0.7 Eos% 1.8 % 0.0-7.0 Hct 36.9 % 36.0-46.0 Hgb 12.3 g/dL 13.0-15.0 Lym 1.00 K/uL 0.60-3.40 Lym% 20.2 % 10.0-50.0 MCH 31.3 pg 27.0-31.0 MCHC 33.3 g/dL 32.0-36.0 MCV 93.9 fL 80.0-97.0 Rock% 4.6 % 0.0-12.0 MPV 9.4 fL 7.4-10.0 Britt% 73.0 % 37.0-80.0 Plt 281 K/uL 150-400 RBC 3.93 M/uL 3.60-5.00 RDW 13.1 % 11.6-14.8 WBC 4.96 K/uL 5.00-10.00 Britt 3.62 K/uL 2.00-6.90 Rock 0.2 K/uL 0.0-0.9 Baso 0.0 K/uL 0.0-0.2 Magnesium - 03/15/19 06:28 Mg++ 1.5 mg/dL 1.6-2.6 CA 125, Serum (Serial) - 03/15/19 06:28 CANCER ANTIGEN (CA) 125 37.9 U/ML 0.0-38 .1 PDF . CA 125, Serum (Serial) - 03/15/19 06:28 Cancer Antigen (CA) 125 37.9 U/mL 0.0-38 .1 PDF . Encounters ACCT No. Visit Date/Time Discharge Status Pt. Type Provider Facility Loc./Unit Complaint [id number] 03/15/2019 06:22:00 03/15/2019 23:59 :00 DIS Outpatient SEBASTIAN MARVIN [id number] 03/13/2019 08:40:00 03/13/2019 23:59 :00 DIS Outpatient TELMA GRUBER [id number] 03/12/2019 14:21:00 03/12/2019 23:59 :00 DIS Outpatient TELMA GRUBER [id number] 03/11/2019 09:05:00 03/11/2019 23:59 :00 DIS Outpatient SEBASTIAN MARVIN [id number] 01/10/2019 15:21:00 01/10/2019 23:59: 00 DIS Outpatient Divya Clemencia [id number] 01/07/2019 15:35:00 01/07/2019 23:59: 00 DIS Outpatient TELMA GRUBER [id number] 11/30/2018 06:11:00 11/30/2018 23:59: 00 DIS Outpatient Melly, Ariadna [id number] 11/28/2018 13:17:00 11/28/2018 23:59: 00 DIS Outpatient Melly, Ariadna [id number] 09/12/2018 06:05:00 09/12/2018 23:59: 00 DIS Outpatient Melly, Ariadna [id number] 03/08/2018 08:23:00 03/08/2018 23:59: 00 DIS Outpatient Melly, Ariadna [id number] 02/27/2018 06:05:00 02/27/2018 23:59: 00 DIS Outpatient Melly, Ariadna [id number] 10/10/2017 06:15:00 10/10/2017 23:59: 00 DIS Outpatient Melly, Ariadna [id number] 10/10/2017 06:09:00 10/10/2017 06:09: 00 CAN Outpatient Melly, Ariadna [id number] 03/07/2017 08:28:00 03/07/2017 23:59: 00 DIS Outpatient Melly, Ariadna [id number] 03/02/2017 06:13:00 03/02/2017 23:59: 00 DIS Outpatient Melly, Ariadna [id number] 09/13/2016 06:06:00 09/13/2016 23:59: 00 DIS Outpatient Melly, Ariadna [id number] 03/15/2016 08:18:00 03/15/2016 23:59: 00 DIS Outpatient Melly, Ariadna [id number] 03/01/2016 06:13:00 03/01/2016 23:59: 00 DIS Outpatient Melly, Ariadna [id number] 01/01/2019 08:52:45 Document Registration [id number] 09/03/2018 08:10:00 Document Registration [id number] 06/18/2018 08:04:00 Document Registration [id number] 06/04/2018 09:01:00 Document Registration [id number] 03/05/2018 10:05:00 Document Registration [id number] 02/05/2018 09:42:00 Document Registration [id number] 01/15/2018 14:37:00 Document Registration [id number] 10/30/2017 15:03:00 Document Registration [id number] 10/16/2017 08:07:00 Document Registration [id number] 04/24/2017 13:05:00 Document Registration [id number] 03/06/2017 08:09:00 Document Registration [id number] 02/27/2019 08:27:00 14:15:00 DIS Outpatient CHRISTIANO SHANTELLE HERNANDEZ [facility] UTERINE CANCER [id number] 02/25/2019 08:45:00 09:20:00 DIS Outpatient CHRISTIANO DO SHANTELLE B [facility] PREOP UTERINE CANCER [id number] 01/07/2019 10:45:00 23:59:59 CLS Outpatient JUANY MAYNARD DOER S [facility] LAB C54.1 [id number] 12/26/2018 07:39:00 23:59:59 CLS Outpatient JESÚSGER DOKARINABRANDON S [facility] 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
== END 2019-02-27 14:15 | disposition home or self-care (01) ==
LOC: SDC 08:27
PROVIDERS: ATTEND Surgery
DX: I87.2 Venous insufficiency (chronic) (peripheral) (principal); C79.82 Secondary malignant neoplasm of genital organs; C80.1 Malignant (primary) neoplasm, unspecified; I10 Essential (primary) hypertension; E78.5 Hyperlipidemia, unspecified; E03.9 Hypothyroidism, unspecified; Z90.710 Acquired absence of both cervix and uterus; Z79.899 Other long term (current) drug therapy; Z88.0 Allergy status to penicillin; Z82.49 Family history of ischemic heart disease and other diseases of the circulatory system; Z83.3 Family history of diabetes mellitus; Z80.9 Family history of malignant neoplasm, unspecified